=== PATIENT | male | born 1940 | race Two or more races ===

== ENCOUNTER → 2019-12-17 08:00 | Outpatient (CLI) | payer OTHER ==
[~2019-12-17] VITALS: Ht 180.3 cm; Wt 95.3 kg
[~2019-12-17 08:00] MED LIST: AMOX-CLAV 875-1 EACH PO; CLONAZEPAM1 MG PO; COLACE100 MG PO; COZAAR100 MG PO; CRESTOR20 MG PO; DESYREL PO; DITROPAN XL5 MG PO; FENOFIBRATE48 MG PO; GABAPENTIN400 MG PO; JANUVIA100 MG PO; LANOXIN125 MCG PO; MEDROLPACK PO; NEURONTIN800 MG PO; PERCOCET 5-3251 EACH PO; PROSCAR5 MG PO; TOPROL XL50 M1 PO; TRAZODONE HCL50 MG; XARELTO20 MG PO
== END | disposition home or self-care (01) ==
LOC: LAB 08:00 → EDSTATUS 12-23 10:15 → SURH 12-23 10:15
PROVIDERS: ATTEND Orthopaedic Surgery Orthopaedic Surgery of the Spine
DX: M48.07 Spinal stenosis, lumbosacral region (principal); M43.17 Spondylolisthesis, lumbosacral region; Z20.828 Contact with and (suspected) exposure to other viral communicable diseases

== ENCOUNTER 2020-02-10 12:02 | Inpatient (IN) | payer OTHER ==
[~2020-02-10] VITALS: Ht 180.3 cm; Wt 93.0 kg
[~2020-02-10 12:02] MED LIST changes: -AMOX-CLAV 875-1 EACH PO; -CLONAZEPAM1 MG PO; -COLACE100 MG PO; -MEDROLPACK PO; -NEURONTIN800 MG PO; -PERCOCET 5-3251 EACH PO; -TRAZODONE HCL50 MG
[2020-02-17] MEDS ORDERED: TRAZODONE HCL50 MG (13:10)
[2020-02-18] MEDS ORDERED: COLACE100 MG PO (07:27)
[2020-02-18] MEDS ORDERED: MEDROLPACK PO (07:27)
[2020-02-18] MEDS ORDERED: NEURONTIN800 MG PO (07:27)
[2020-02-18] MEDS ORDERED: AMOX-CLAV 875-1 EACH PO (07:28)
[2020-02-18] MEDS ORDERED: CLONAZEPAM1 MG PO (07:29)
[2020-02-18] MEDS ORDERED: PERCOCET 5-3251 EACH PO (07:29)
== END 2020-02-18 18:03 | DRG 455 ==
LOC: O/R 02-17 06:00 → SURH 02-17 11:58 → SURG 02-17 19:07
PROVIDERS: ADMIT Orthopaedic Surgery Orthopaedic Surgery of the Spine; ATTEND Orthopaedic Surgery Orthopaedic Surgery of the Spine
PROC: 0SG3071 Fusion of Lumbosacral Joint with Autologous Tissue Substitute, Posterior Approach, Posterior Column, Open Approach (ICD-10-PCS; 2020-02-17)
PROC: 3E0U0GB Introduction of Recombinant Bone Morphogenetic Protein into Joints, Open Approach (ICD-10-PCS; 2020-02-17)
PROC: 07DR0ZZ Extraction of Iliac Bone Marrow, Open Approach (ICD-10-PCS; 2020-02-17)
PROC: 00SY0ZZ Reposition Lumbar Spinal Cord, Open Approach (ICD-10-PCS; 2020-02-17)
PROC: 00JU0ZZ Inspection of Spinal Canal, Open Approach (ICD-10-PCS; 2020-02-17)
PROC: 0SG30AJ Fusion of Lumbosacral Joint with Interbody Fusion Device, Posterior Approach, Anterior Column, Open Approach (ICD-10-PCS; principal; 2020-02-17 12:45)
DX: M48.07 Spinal stenosis, lumbosacral region (principal); M43.07 Spondylolysis, lumbosacral region; M51.37 Other intervertebral disc degeneration, lumbosacral region; M48.062 Spinal stenosis, lumbar region with neurogenic claudication; M96.1 Postlaminectomy syndrome, not elsewhere classified; Z98.1 Arthrodesis status